=== PATIENT | female | born 1955 | race Caucasian/White ===

== ENCOUNTER 2022-08-19 09:23 | Inpatient (IN) ==
[2022-08-12 18:26] LABS: Appearance,Urine CLEAR (Clear); Bilirubin,Urine NEGATIVE (Negative); Color,Urine LT. YELLOW; Culture Indicated,Urine No; Glucose,Urine (UA) NEGATIVE (Negative); Ketones,Urine TRACE mg/dL (Negative); Leukocyte Esterase,Urine NEGATIVE /uL (Negative); Nitrate,Urine NEGATIVE (Negative); PH,Urine 6.5 (5.0-9.0); Protein,Urine NEGATIVE (Negative); Specific Gravity,Urine 1.015 (1.000-1.035); Urine Blood NEGATIVE ery/mcL (Negative); Urobilinogen,Urine Normal
[2022-08-12 18:29] LABS: Basophils # (Auto) 0.03 K/mcL (0.00-0.30); Basophils % (Auto) 0.7 % (0.0-2.0); Eosinophils # (Auto) 0.13 K/mcL (0.00-0.70); Eosinophils % (Auto) 3.1 % (0.0-7.0); Hematocrit 36.2 % (34.1-44.9); Hemoglobin 12.8 g/dL (11.2-15.7); Lymphocytes # (Auto) 1.72 K/mcL (1.50-4.80); Lymphocytes % (Auto) 41.2 % (15.5-49.0); Mean Cell Volume 90.3 fL (80.0-100.0); Mean Corpuscular HGB Conc 35.4 g/dL (31.0-36.0); Mean Platelet Volume 9.8 fL (8.8-12.5); Monocytes # (Auto) 0.35 K/mcL (0.10-0.90); Monocytes % (Auto) 8.4 % (1.0-12.0); Neutrophils % (Auto) 46.4 % (38.0-78.0); Platelet Count 181 K/mcL (140-440); RBC 4.01 M/mcL (3.59-5.38); Red Cell Distribution Width 12.2 % (11.5-14.5); WBC 4.2 K/mcL (4.5-11.0)
[2022-08-12 18:45] LABS: Estimated Average Glucose(eAG) 103 mg/dL; Hemoglobin A1C 5.2 % Hgb (4.0-6.0)
[2022-08-12 19:22] LABS: ALT/SGPT 16 U/L (<40); AST/SGOT 18 U/L (<32); Albumin 4.4 gm/dL (3.2-5.2); Albumin/Globulin Ratio 1.8 (1.0-2.3); Alkaline Phosphatase 80 U/L (39-117); Bilirubin,Total 0.2 mg/dL (0.1-1.0); Blood Urea Nitrogen 19 mg/dL (8-23); Calcium 9.3 mg/dL (8.6-10.4); Carbon Dioxide 25 mmol/L (22-30); Chloride 105 mmol/L (96-108); Globulin 2.5 gm/dL (2.2-3.7); Glomerular Filtration Rate 42; Glucose 99 mg/dL (70-105)
--- NOTE | 2022-08-14 08:16 | EKG ---
[facility] Test Date: 2022-08-12 Pat Name: Carrie Doll Department: MED[facility] Room: Gender: Female Cardiac Cath Lab Manager: : [id number] Requested By: Miguel A Schmidt Order Number: [id number] Reading MD: Giuseppe Bo M.D. Measurements Intervals [place] Rate: 60 P: 64 WV: 157 QRS: -2 QRSD: 88 T: 81 QT: 422 QTc: 421 Interpretive Statements Sinus rhythm Abnormal R-wave progression, early transition BORDERLINE T ABNORMALITIES, LATERAL LEADS Electronically Signed On 08-14-2022 8:15:34 PST by Giuseppe Bo M.D. /[id number]
[~2022-08-19 09:23] MED LIST: 0.9 % SODIUM CHLORIDE 9 ML, KETOROLAC 30 MG, ROPIVACAINE HCL/PF 49.5 ML, EPINEPHrine 0.... IJ SCH; CELECOXIB 200 MG CAPSULE PO SCH; IPRATROPIUM/ALBUTEROL 3 ML AMPUL.NEB NEB PRN; PREGABALIN 75 MG CAPSULE PO SCH; SCOPOLAMINE 1 PATCH PATCH TOPICAL PRN; ceFAZolin 2 GM in DEXTROSE 5% IN WATER 50 ML IV SCH; oxyCODONE 10 MG TAB.ER.12H PO SCH
[2022-08-19] MEDS ORDERED: ROCURONIUM 10 MG/ML ML IV ONE (13:47)
[2022-08-19] MEDS ORDERED: PROPOFOL 200 MG/20 ML VIAL IV ONE (13:47)
[2022-08-19] MEDS ORDERED: KETAMINE 50 MG/ML Syringe (ANEST) IV ONE (13:47)
[2022-08-19] MEDS ORDERED: METOPROLOL TARTRATE 5 MG/5 ML VIAL IV ONE (13:47)
[2022-08-19] MEDS ORDERED: DEXAMETHASONE 10 MG/ML VIAL ONE (13:47)
[2022-08-19] MEDS ORDERED: ONDANSETRON 4 MG/2 ML VIAL ONE (13:47)
[2022-08-19] MEDS ORDERED: MAGNESIUM SULFATE 2 GM/50 ML BAG IV ONE (13:47)
[2022-08-19] MEDS ORDERED: GLYCOPYRROLATE 0.2 MG/ML VIAL IV ONE (13:47)
[2022-08-19] MEDS ORDERED: LIDOCAINE HCL/PF 100 MG/5 ML SYRINGE IV ONE (13:47)
[2022-08-19] MEDS ORDERED: SUGAMMADEX SODIUM 200 MG/2 ML VIAL IV ONE (13:47)
[2022-08-19] MEDS ORDERED: ONDANSETRON 4 MG/2 ML VIAL IV PRN ×2 (14:41→14:43)
[2022-08-19] MEDS ORDERED: METHOCARBAMOL 1,000 MG/10 ML VIAL IV PRN (14:41)
[2022-08-19] MEDS ORDERED: PROMETHAZINE 25 MG/ML VIAL IM PRN (14:41)
[2022-08-19] MEDS ORDERED: morphine 2 MG/ML VIAL IV PRN (14:41)
[2022-08-19] MEDS ORDERED: LACTATED RINGERS 250 ML IV PRN (14:41)
[2022-08-19] MEDS ORDERED: fentaNYL 100 MCG/2 ML VIAL IV PRN (14:41)
[2022-08-19] MEDS ORDERED: IPRATROPIUM/ALBUTEROL 3 ML AMPUL.NEB NEB PRN (14:41)
[2022-08-19] MEDS ORDERED: METOPROLOL TARTRATE 5 MG/5 ML VIAL IV PRN (14:41)
[2022-08-19] MEDS ORDERED: METOCLOPRAMIDE 10 MG/2 ML VIAL IV PRN (14:41)
[2022-08-19] MEDS ORDERED: ACETAMINOPHEN 1,000 MG/100 ML BAG IV ONE (14:41)
[2022-08-19] MEDS ORDERED: MEPERIDINE 50 MG/ML VIAL IM PRN (14:41)
[2022-08-19] MEDS ORDERED: NALOXONE HCL 0.4 MG/ML VIAL IV PRN (14:41)
[2022-08-19] MEDS ORDERED: HYDROmorphone 0.5 MG/0.5 ML SYRINGE IV PRN (14:41)
[2022-08-19] MEDS ORDERED: PROMETHAZINE 25 MG/ML VIAL IV PRN (14:41)
[2022-08-19] MEDS ORDERED: TRANEXAMIC ACID 1,000 MG/10 ML VIAL IV ONE (14:43)
[2022-08-19] MEDS ORDERED: MAGNESIUM HYDROXIDE 30 ML ORAL.SUSP PO PRN (14:43)
[2022-08-19] MEDS ORDERED: BISACODYL 10 MG SUPP.RECT PR PRN (14:43)
[2022-08-19] MEDS ORDERED: FLEETS ADULT ENEMA PR PRN (14:43)
[2022-08-19] MEDS ORDERED: POLYETHYLENE GLYCOL 3350 17 GM PACKET PO PRN (14:43)
--- NOTE | 2022-08-19 14:43 | Brief Operative Note ---
Brief Operative Note Date of procedure: 08/19/22 Pre-op diagnosis: Right knee instability s/p TKA, impinging overgrowth lateral patella Post-op diagnosis: same Procedure: 1)Revision right TKA, 1 component 2)Shaving of lateral patella Grafts/Implants: Yes (13mm size 3 CS insert) Anesthesia: spinal and GLMA Findings: no evidence of infection or implant loosening, significant instability Complications: none Surgeon: Miguel A Bowser Front End Architect: Joey Andrews Estimated blood loss (cc): 30 Specimens Removed/Pathology: other (removed tibial insert and wire-discarded) Condition: stable Disposition: PACU
[2022-08-19] MEDS ORDERED: LACTATED RINGERS 1,000 ML IV SCH (14:45)
[2022-08-19] MEDS ORDERED: morphine 4 MG/ML VIAL IV PRN (14:48)
[2022-08-19] MEDS ORDERED: HYDROcodone/APAP 5/325MG TABLET PO PRN (14:48)
[2022-08-19] MEDS ORDERED: clonazePAM 0.5 MG TABLET PO PRN (15:08)
[2022-08-19] MEDS ORDERED: ROPIVACAINE HCL/PF 20 ML VIAL IJ ONE (15:11)
[2022-08-19] MEDS ORDERED: SUCRETS LOZENGE PO PRN (15:22)
[2022-08-19] MEDS: MEPERIDINE 25 MG/ML VIAL IV PRN ×2 (15:38→15:43)
--- NOTE | 2022-08-19 16:05 | XRay Report ---
CLINICAL INFORMATION: Post-op total knee. COMPARISON: None. FINDINGS: Total knee prostheses is anatomically aligned. No osseous abnormalities. Periarticular soft tissue swelling seen as expected. IMPRESSION: Knee prostheses in anatomic alignment Interpreted and Authenticated by: Giuseppe Lee 08/19/22
[2022-08-19] MEDS ORDERED: METOPROLOL TARTRATE 25 MG TABLET PO PRN (17:26)
[2022-08-19] MEDS: KETOROLAC 30 MG/ML VIAL IV SCH (17:47)
[2022-08-19] MEDS: 0.9 % SODIUM CHLORIDE 1,000 ML IV SCH (17:51)
[2022-08-19] MEDS: DOCUSATE SODIUM 100 MG CAPSULE PO SCH (20:21)
[2022-08-19] MEDS: ASPIRIN 81 MG TAB.CHEW PO SCH (20:21)
[2022-08-19] MEDS: LOSARTAN 50 MG TABLET PO SCH (20:21)
[2022-08-19] MEDS ORDERED: SIMVASTATIN 10 MG TABLET PO SCH (21:00)
[2022-08-19] MEDS ORDERED: SENNOSIDES 1 TABLET PO SCH (21:00)
[2022-08-19] MEDS: ceFAZolin 1 GM VIAL IV SCH (22:46)
[2022-08-19] MEDS: 0.9 % SODIUM CHLORIDE 10 ML SYRINGE IV SCH (22:47)
[2022-08-20] MEDS: KETOROLAC 30 MG/ML VIAL IV SCH ×2 (03:22→06:09)
[2022-08-20] MEDS: 0.9 % SODIUM CHLORIDE 1,000 ML IV SCH (03:22)
[2022-08-20] MEDS: 0.9 % SODIUM CHLORIDE 10 ML SYRINGE IV SCH (05:37)
[2022-08-20] MEDS: ceFAZolin 1 GM VIAL IV SCH (05:37)
--- NOTE | 2022-08-20 07:35 | Discharge Summary ---
Discharge Provider Provider IMPORTANT FOLLOW-UP INFORMATION FOR PCP: Patient information: Note initiated : 08/20/22 at 7:34 am Service Date, if different from initiated Date: [] Patient: Carrie Doll 67 y/o F admitted on 08/19/22 for Right Total Knee Arthroplasty Revision - Poly . Chief Complaint: [] Date of admission: 08/19/22 09:23 Discharge date: 08/20/22 Primary care physician: PCP No COURSE Hospital Course Hospital course: Pt admitted for a R Revision TKA of the polyethylene. Discharged to home post-op day 1. ASA for DVT prophylaxis. f/u 2 weeks. Discharge diagnosis: R Painful total knee Time Spent with Patient Time attestation: Total time spent providing and/or coordinating discharge services: Time spent: Less than 30 minutes Physical Examination Exam Clean and dry: Yes Weight bearing status: as tolerated Discharge Instructions - TKA Patient Instructions Total Knee Protocol: For Total Knee: Start ROM VALE with stationary bike or rocking chair. Work on gaining full extension of knee. Posterior dislocation precautions provided. Hip abductor strengthening and gait training instructions provided. Apply Cryocuff as instructed. Dressing Care: May shower in 2 days Discharge Plan Patient/Caregiver Discharge Instructions Activity: increase activity as tolerated Diet: Regular Diet Prescriptions: New aspirin 81 mg tablet,delayed release (DR/EC) 81 mg PO BID Qty: 30 0RF oxycodone 5 mg capsule 5 mg PO Q6H PRN (Reason: pain) Qty: 30 0RF Continued acyclovir 400 mg tablet 400 mg PO QDAY escitalopram oxalate 10 mg tablet 10 mg PO QDAY losartan 50 mg Tablet 50 mg PO BID clonazepam 1 mg Tablet 0.25 mg PO DAILY PRN (Reason: Anxiety) Rx Instructions: takes maybe a couple times a week pravastatin 20 mg Tablet 20 mg PO QHS magnesium oxide 400 mg magnesium Capsule 400 mg PO DAILY pantoprazole [Protonix] 40 mg Tablet,Delayed Release (Dr/Ec) 40 mg PO QDAY Probiotic 10 billion cell Capsule 10,000 mmu cells PO DAILY Rx Instructions: specific probiotic not known Other Ambulatory Orders: Physical Therapy at Discharge - TKA (Routine) Location: None Selected Ordered By: Joey Navarro (ONCE) Location: None Selected Ordered By: Joey Andrews Follow Up Plan Follow up with: Miguel A Bowser MD [Physician] - 09/03/22 9:30 am Joey Andrews PA-C [Physician Staff Genetic Counselor] - Patient Disposition: Home, Self-Care Rehab Potential: Good Overall status at discharge: patient is progressing back to baseline Discharge Orders: Discharge Order (Routine); Ordered 08/20/22 Ordered By: Joey Andrews Pending Pending Pending: Resuscitation Status Resuscitate (Full Code) Diet Regular Diet Start WedAug 19 144 Hydrocodone Bitart/Acetaminophen (Hydrocodone/Apap 5/325mg Tablet) 1 - 2 tab PO Q4HP PRN; Protocol PRN Reason: Per Pain Protocol Last Admin: 08/20/22 03:56 Dose: 1 tab Documented By: BRADY Aspirin (Aspirin 81 Mg Tab.Chew) 81 mg PO BID [facility] Last Admin: 08/19/22 20:21 Dose: 81 mg Documented By: BRADY Docusate Sodium (Docusate Sodium 100 Mg Capsule) 100 mg PO BID [facility] Last Admin: 08/19/22 20:21 Dose: 100 mg Documented By: BRADY Ketorolac Tromethamine (Ketorolac 30 Mg/Ml Vial) 30 mg IV Q6 [facility] Stop: 08/21/22 12:01 Last Admin: 08/20/22 06:09 Dose: Not Given Documented By: Admin: 08/20/22 03:22 Dose: Not Given Documented By: Admin: 08/19/22 17:47 Dose: 30 mg Documented By: HFULTZ Losartan Potassium (Losartan 50 Mg Tablet) 50 mg PO BID [facility] Last Admin: 08/19/22 20:21 Dose: 50 mg Documented By: BRADY Ondansetron HCl (Ondansetron 4 Mg/2 Ml Vial) 4 mg IV Q4HP PRN; Protocol PRN Reason: Nausea And Vomiting Last Admin: 08/20/22 05:40 Dose: 4 mg Documented By: BRADY Senna (Sennosides 1 Tablet) 2 tab PO HS [facility] Last Admin: 08/19/22 20:21 Dose: 2 tab Documented By: BRADY Simvastatin (Simvastatin 10 Mg Tablet) 10 mg PO HS [facility] Last Admin: 08/19/22 20:20 Dose: 10 mg Documented By: BRADY Sodium Chloride (0.9 % Sodium Chloride 10 Ml Syringe) 10 ml IV Q8 [facility] Last Admin: 08/20/22 05:37 Dose: 10 ml Documented By: Admin: 08/19/22 22:47 Dose: 10 ml Documented By: BRADY Shift Summary 08/20/22 02:34 Shift Summary by Olivia Kelly Primary Diagnosis: Right knee instability s/p TKA, impinging overgrowth lateral patella. Registration Status: 08/19 - M/S IP Date of Surgery (if applicable): 08/19 - 1)Revision right TKA, 1 component 2)Shaving of lateral patella Pertinent Medical Dx/Issue(s): HTN, CKD, GERD, depression/anxiety, Vital Signs with Trends: BPs 152/74, 175/82 otherwise VSS on RA Neuro : A&OX4. Ambulation status : Up to BR w/ FWW, Diet : Regular Pain management (acute vs. chronic): Rates R knee pain 4-6/10, Ora 5mg 2 tabs given X2. Slept well this shift. Lab/Rad (abnormals, trends): Urinary output greater than 30mL/hr? Yes, per toilet w/ hat. Date of last BM: No BM this shift. Lines/Tubes: RFA SL Skin / Wound : Paco wrap to RLE CDI. Recommendations/questions for MD: Discharge Plan (needs, disposition, etc): To return home when medically cleared. Initialized on 08/20/22 02:34 - END OF NOTE
[2022-08-20] MEDS: DOCUSATE SODIUM 100 MG CAPSULE PO SCH (08:46)
[2022-08-20] MEDS: LOSARTAN 50 MG TABLET PO SCH (08:46)
[2022-08-20] MEDS: ASPIRIN 81 MG TAB.CHEW PO SCH (08:47)
[2022-08-20] MEDS ORDERED: MAGNESIUM OXIDE 400 MG TABLET PO SCH (09:00)
[2022-08-20] MEDS ORDERED: ESCITALOPRAM 10 MG TABLET PO SCH (09:00)
[2022-08-20] MEDS ORDERED: ACYCLOVIR 400 MG TABLET PO SCH (09:00)
[2022-08-20] MEDS ORDERED: PANTOPRAZOLE 40 MG TABLET PO SCH (09:00)
[2022-08-20] MEDS ORDERED: LACTOBACILLUS 1 CAPSULE PO SCH (09:00)
--- NOTE | 2022-08-20 09:36 | Operative Note ---
DATE OF OPERATION: 08/19/2022 DATE OF PROCEDURE: 08/19/2022 PREOPERATIVE DIAGNOSIS: Right knee instability and gentle lateral patellar impingement, approximately 2 years status post total knee arthroplasty. POSTOPERATIVE DIAGNOSIS: Right knee instability and gentle lateral patellar impingement, approximately 2 years status post total knee arthroplasty. PROCEDURE PERFORMED: 1. Revision of right total knee arthroplasty, one component, removing a 10 mm cruciate-retaining polyethylene insert and replacing it with a 13 mm cruciate-substituting polyethylene insert. 2. Shaving of potential impinging lateral patellar bone. SURGEON: Miguel A Bowser MD [employer]CEL POST TRUCK DRIVER: Cesar Andrews PA-C. The expertise and technical skill of this provider were required throughout the case. The PA assisted with preoperative coordination, intraoperative retraction, wound closure, and dressing and splint application, as well as postoperative documentation and care coordination. ANESTHESIA: Spinal plus general. DRAINS: None. SPECIMENS: The removed tibial component and wire as well as a small bone fragment removed from the lateral patella. These were discarded. ESTIMATED BLOOD LOSS: 30 mL. COMPLICATIONS: None. POSTOPERATIVE CONDITION: Stable. INDICATIONS FOR SURGERY: This is a lady who had a total knee arthroplasty done around 2 years ago. She had done well for a year and a half, then has developed increasing pain. Her x-rays did not show evidence of significant implant loosening. Her infection workup was negative for infection. Her clinical exam revealed laxity that seemed significantly increased from prior. Also, her radiographs showed what appeared to be some overgrowth of the bone on the lateral patella that was potentially impinging on the femoral component. FINDINGS AT SURGERY: She did have significant laxity, particularly to drawer, intraoperatively. Post implantation showed much improved stability. PROCEDURE IN DETAIL: The patient had been seen preoperatively. Informed consent had been obtained after discussion of risks and benefits of surgery. Risks including, but not limited to, bleeding; infection, possibly requiring implant removal and prolonged IV antibiotics; injury to nerves, blood vessels, other surrounding structures, anesthetic risks; incomplete or no resolution of her symptoms, stiffness, swelling, pain, instability; possibility of needing further revision surgeries. She understood these risks and wished to proceed. Correct operative site was marked in the preoperative holding, and spinal anesthesia was given. She was taken to the operating room. LMA general was performed. Right lower extremity was carefully prepped and draped in normal sterile fashion and a timeout was performed verifying patient name, operative site, and plan. An Esmarch was used to exsanguinate the extremity, and tourniquet was inflated to 300 mmHg. Ioban was used to cover all exposed skin surfaces and then her prior midline surgical scar was used with a scalpel through skin and subcutaneous tissue. IrriSept was irrigated and then a medial parapatellar arthrotomy was performed. We did identify her 3 FiberWire [id number] sutures and these were cut and removed. Once we entered the joint, two culture swabs were taken. There was no gross evidence of infection. We did a subperiosteal release of the anterior, medial and proximal tibia. I also excised some of the retropatellar tendon scar tissue. We then everted the patella and exposed with the Bovie the overhanging bone from the component and I made what was essentially a vertical cut just off of the lateral edge of the patellar button. This was a small sliver of bone, probably 3 mm or so in the medial to lateral dimension. We removed this piece bone and then I used some bone wax on the cut surface to try and diminish the likelihood of recurrence. I then proceeded to expose the tibia component and a curved osteotome was used to remove the insert from the baseplate. There was also the retention wire, which was removed as well. We then carefully inspected and removed any remaining scar tissue on the baseplate. I then, due to the significant laxity, decided to trial a 13 polyethylene insert. This went in with some mild difficulty and once this was in, I checked to see if we could still get into full extension, which we could. Her stability to varus and valgus and drawer were dramatically improved, so I felt this was the appropriate thickness. I did feel like she could use all the improved stability we could get so I chose a 13 cruciate-substituting polyethylene insert and this was opened. We removed the trial insert, we injected a pain cocktail. IrriSept was then irrigated in the joint, after a minute pulse lavaged with saline, and then the definitive insert was impacted. Again, we checked our range of motion, which was good and stability seemed even better with the CS insert. At this point, we did one more deep irrigation with IrriSept, after a minute pulse lavaged with saline, and then the knee was placed in about 45 degrees of flexion. A #2 FiberWire [id number] was placed at the superior medial apex of the incision at the patella and the inferior patellar apex. I then used Stratafix to do two running stitches, one for the inferior patella and patellar tendon closure and one for the quadriceps tendon and upper patella closure. This gave us a watertight closure. IrriSept was irrigated again, after a minute pulse lavaged with saline, and then 2-0 Monocryl was used for subcutaneous, kirsten for skin. Xeroform and a sterile dressing were applied. Tourniquet was released and the patient was awakened, extubated, and transferred to recovery in stable condition. BJB:don Job ID: [id number] Doc ID: [id number] Miguel A Bowser MD
== END 2022-08-20 11:00 | disposition home or self-care (01) | DRG 489 ==
LOC: MEDSUR 09:23
PROVIDERS: ADMIT Orthopaedic Surgery; ATTEND Orthopaedic Surgery